=== PATIENT | female | born 2000 | race Caucasian/White ===

== ENCOUNTER 2019-11-01 05:45 | Emergency (ER) | payer MEDICAID ==
[2019-11-01] MEDS ORDERED: KETOROLAC 30 MG/ML VIAL IM ONE (05:53)
[2019-11-01] MEDS ORDERED: ACETAMINOPHEN 500 MG TABLET PO ONE (05:54)
--- NOTE | 2019-11-01 06:01 | Emergency Department Record ---
History of Present Illness - General Chief complaint: Pain Stated complaint: LT ELBOW PAIN Time Seen by Provider: 11/01/19 05:47 Source: Patient Mode of Arrival: Ambulatory Limitations: No limitations - History of Present Illness Initial comments: 19 yo female presents with left elbow pain. The elbow was mildly painful yesterday. She states around 8pm the elbow began to hurt more with lifting or moving. She denies and trauma. She denies any fever, redness or swelling. 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 She stay home and does not work. She has never had any problems with the elbow in the past. She denies any swelling, numbness or tingling. No wrist or shoulder pain. She denies any other joints that hurt. She has otherwise been in her usual state of health without any recent illness. She did not take anything prior to arrival. She did put a heating pad on the elbow without change. MD Complaint: Extremity pain, Joint pain -: Hour(s) (10) Location: Left History of Same: No -: Yes Arthralgia Radiation: Distal Quality: Aching Consistency: Constant Improves with: Elevation, Immobilization Worsens with: Weight bearing Associated Symptoms: Denies other symptoms - Related Data Previous Rx's Medication Instructions Recorded Ibuprofen 600 mg PO Q6H PRN #20 tablet 11/01/19 Allergies Allergy/AdvReac Type Severity Reaction Status Date / Time kiwi Allergy ANAPHYLAXIS Verified 11/01/19 06:00 morphine Allergy ANAPHYLAXIS Verified 11/01/19 06:00 shellfish derived Allergy ANAPHYLAXIS Verified 11/01/19 06:00 Review of Systems Constitutional: Denies: Chills, Fever, Malaise, Weakness Eyes: Denies: Eye discharge, Eye pain, Photophobia, Vision change ENT: Denies: Congestion, Throat pain Respiratory: Denies: Cough, Dyspnea Cardiovascular: Denies: Chest pain Endocrine: Denies: Fatigue, Polydipsia, Polyuria Gastrointestinal: Denies: Abdominal pain, Diarrhea, Nausea, Vomiting Genitourinary: Denies: Dysuria, Urgency Musculoskeletal: Reports: Arthralgia, Myalgia. Denies: Back pain, Joint swelling, Neck pain Skin: Denies: Bruising, Change in color, Rash Neurological: Denies: Numbness, Tingling, Weakness Psychiatric: Denies: Anxiety Hematological/Lymphatic: Denies: Easy bleeding, Easy bruising, Swollen glands Physical Exam - General General Appearance: Alert, Oriented x3, Cooperative, No acute distress Limitations: No limitations - Head Head exam: Atraumatic, Normal inspection - Eye Eye exam: Normal appearance, PERRL. negative: Conjunctival injection - ENT ENT exam: Normal exam, Mucous membranes moist Ear exam: Normal external inspection Nasal Exam: Normal inspection Mouth exam: Normal external inspection - Neck Neck exam: Normal inspection, Full ROM. negative: Lymphadenopathy, Tenderness - Respiratory Respiratory exam: Normal lung sounds bilaterally - Cardiovascular Peripheral Pulses: 2+: Radial (R) - Rectal Rectal exam: Deferred - exam: Deferred - Extremities Extremities exam: Normal inspection, Normal capillary refill, Tenderness. negative: Full ROM, Joint swelling Image of Full Body: 1 - normal inspection, tenderness medially and lateral. tender at the biceps distally but is intact, tender at the proximal forearm but normal to palpation without swelling. the wrist has full ROM without any pain, the shoulder has full ROM without pain. no upper or lower arm swelling - Back Back exam: Denies: CVA tenderness (R), CVA tenderness (L) - Neurological Neurological exam: Alert, Normal gait, Oriented X3. negative: Motor sensory deficit - Psychiatric Psychiatric exam: Normal affect, Normal mood. negative: Agitated, Anxious - Skin Skin exam: Normal color. negative: Cyanosis, Diaphoretic, Erythema, Mottled Course Vital Signs 11/01/19 05:49 Temperature 98.2 F Pulse Rate [ 116 H Pulse Ox Probe] Respiratory 20 Rate Blood Pressure 110/71 [Right Arm] Pulse Ox 99 - Reevaluation(s) Reevaluation #1: 11/01/19 06:35 The XR report was reviewed. Anterior subcutaneous edema. No fracture. No fat pad displacement. No effusion. On recheck the pain is much better after the medication. She is tender over the biceps tendon. This may represent a biceps tendonitis. There is not abnormal warmth, redness or swelling at this time. No signs of infection. She will be treated with rest, ice, immobilization and NSAID. We discussed reasons to return for a recheck and I recommend she see her PCP for a recheck as well. Disposition Disposition: Discharge Clinical Impression: Biceps tendonitis Qualifiers: Laterality: left Qualified Code(s): M75.22 - Bicipital tendinitis, left shoulder Disposition: Home, Self-Care Condition: (1) Good Instructions: Tendinitis (ED) Additional Instructions: Use the sling for support and comfort Take your arm out of the sling and gently move it several times a day Apply ice every 4-6 hours to help with pain and inflammation Call your family doctor today to schedule a recheck of the symptoms Return immediately to the ER if you have redness, swelling, fever, worse or any new concerns Prescriptions: Ibuprofen 600 mg PO Q6H PRN #20 tablet PRN Reason: Pain - Mild (1-4) Forms: Patient Portal Access Time of Disposition: 06:42 Quality - Quality Measures Quality Measures: N/A - Blood Pressure Screening Does Patient Have Any of the Following: No Blood Pressure Classification: Normal BP Reading Systolic Measurement: 110 Diastolic Measurement: 71 Screening for High Blood Pressure: < Normal BP, F/U Not Required > [[id number]]
--- NOTE | 2019-11-01 06:33 | RADIOLOGY REPORT ---
EXAMINATION: Left Elbow Complete, Minimum Three Views EXAM DATE: 11/01/2019 6:22 AM TECHNIQUE: AP, lateral, and oblique INDICATION: elbow pain COMPARISON: None ENCOUNTER: Initial FINDINGS: There is subcutaneous edema in the antecubital fossa. No fracture or dislocation. No fat pad displace ment. IMPRESSION: Anterior subcutaneous edema. No fracture. Dictated by: Timmy Sutton MD on 11/01/2019 6:29 AM. .
== END 2019-11-01 06:56 | disposition home or self-care (01) ==
LOC: ER 05:45
DX: M75.22 Bicipital tendinitis, left shoulder (principal); F17.210 Nicotine dependence, cigarettes, uncomplicated
CPT/HCPCS: 99284 ×2; 96372; 73080; J1885